=== PATIENT | female | born 1945 | race Hispanic/Latino ===

== ENCOUNTER 2017-05-06 06:52 | Day surgery (SDC) | payer OTHER, MEDICARE ==
[2017-05-05 08:49] VITALS: BP 84/34
[~2017-05-06] VITALS: Ht 160 cm; Wt 89.7 kg
[~2017-05-06 06:52] MED LIST: ALEN70TA47 PO; AMLO5TAB2 PO; ASPI-555 PO; CA C1TAB95 PO; ESOM40CA PO; INSLAN SQ; LEVO50TA11 PO; LEVO75TA10 PO; LISI40TA4 PO; METF500T6 PO; SIMV40TA59 PO
[2017-05-06] MEDS ORDERED: SODIUM CHLORIDE 0.9% 1000ML 1,000 ML IV ONE (06:56)
[2017-05-06 07:30] VITALS: BP 129/66
[2017-05-06] MEDS ORDERED: PROPOFOL 10 MG/ML 20ML VIAL IV ONE (07:57)
[2017-05-06] MEDS ORDERED: LIDOCAINE HCL 1% 20 ML VIAL ONE (08:17)
[2017-05-06] MEDS ORDERED: MIDAZOLAM HCL 1 MG/ML 2ML VIAL ONE (08:17)
[2017-05-06] MEDS ORDERED: FENTANYL CITRATE PF 50 MCG/1 ML 2ML VIAL ONE (08:17)
== END 2017-05-06 09:15 | disposition home or self-care (01) ==
LOC: SUH 06:52 → DAH 06:52 → SUH 09:15
PROVIDERS: ATTEND Internal Medicine Gastroenterology
DX: Z09 Encounter for follow-up examination after completed treatment for conditions other than malignant neoplasm (principal); K63.5 Polyp of colon; K57.30 Diverticulosis of large intestine without perforation or abscess without bleeding; I10 Essential (primary) hypertension; E03.9 Hypothyroidism, unspecified; E11.9 Type 2 diabetes mellitus without complications; M19.90 Unspecified osteoarthritis, unspecified site; F32.9 Major depressive disorder, single episode, unspecified; Z90.710 Acquired absence of both cervix and uterus; Z90.49 Acquired absence of other specified parts of digestive tract; Z98.890 Other specified postprocedural states; Z86.010 Personal history of colon polyps; Z91.041 Radiographic dye allergy status
CPT/HCPCS: 45380; 82948 ×2; 88305; 93005; A4606; J2250; J2704; J3010; J7030

== ENCOUNTER 2017-06-10 18:08 | Emergency (ER) | payer OTHER, MEDICARE ==
[2017-06-10] MEDS ORDERED: MORPHINE SULFATE 2 MG/ML 1ML SYG ONE (18:47)
[2017-06-10] MEDS ORDERED: ONDANSETRON HCL 4 MG/2 ML VIAL ONE (18:47)
[2017-06-10 19:13] LABS: CREATININE 1.5 mg/dL (0.5-1.5); POTASSIUM 3.8 mmol/L (3.5-5.1)
[2017-06-10 19:23] LABS: BASOPHILS % (AUTO) 0.6 % (0.0-5.0); EOSINOPHILS % (AUTO) 2.1 % (0.0-8.0); HEMATOCRIT 28.3 % (36-48); LYMPHOCYTES % (AUTO) 21.9 % (21.0-51.0); MEAN CORPUSCULAR HEMOGLOBIN 28.6 pg (27.0-33.0); MEAN CORPUSCULAR HGB CONC 33.5 g/dL (32.0-36.0); MEAN CORPUSCULAR VOLUME 85.4 fL (79-99); MONOCYTES % (AUTO) 7.1 % (3.0-13.0); NEUTROPHILS % (AUTO) 68.3 % (40.0-77.0); PLATELET COUNT (AUTO) 541 K/uL (130-400); RED BLOOD CELL COUNT(AUTO) 3.32 MIL/uL (4.00-5.50); RED CELL DISTRIBUTION WIDTH 13.8 % (11.0-15.5); WHITE BLOOD COUNT (AUTO) 10.1 K/uL (4.8-10.8)
== END 2017-06-10 20:24 | disposition home or self-care (01) ==
LOC: EDH 18:08
DX: M54.32 Sciatica, left side (principal); I10 Essential (primary) hypertension; E11.9 Type 2 diabetes mellitus without complications; E78.5 Hyperlipidemia, unspecified; Z91.041 Radiographic dye allergy status
CPT/HCPCS: 36415; 80048; 85025; 93926; 93971; 96374; 96375; 99285; J2405

== ENCOUNTER 2019-03-29 14:18 | Emergency (ER) | payer OTHER, MEDICARE ==
[~2019-03-29 14:18] MED LIST changes: +ALEN70TA10 PO; -ALEN70TA47 PO; -AMLO5TAB2 PO; +AMLO5TAB9 PO; +METF-444 PO; -METF500T6 PO
[2019-03-29] MEDS ORDERED: TETANUS/DIPHTHERIA TOXOID [ADULT] 0.5 ML VIAL IM ONE (14:42)
[2019-03-29] MEDS ORDERED: ACETAMINOPHEN EXTRA STRENGTH 500 MG TABLET ONE (14:49)
[2019-03-29] MEDS ORDERED: LIDOCAINE 1%-EPI 1:100,000 20 ML VIAL IJ ONE (14:49)
== END 2019-03-29 17:13 | disposition home or self-care (01) ==
LOC: EDH 14:18
DX: S01.81XA Laceration without foreign body of other part of head, initial encounter (principal); E11.9 Type 2 diabetes mellitus without complications; E78.5 Hyperlipidemia, unspecified; I10 Essential (primary) hypertension; Z91.041 Radiographic dye allergy status; W18.39XA Other fall on same level, initial encounter; Y93.89 Activity, other specified; Y92.89 Other specified places as the place of occurrence of the external cause; Y99.8 Other external cause status
CPT/HCPCS: 12053; 70450; 72125; 90471; 90714; 99284; J3490

== ENCOUNTER 2021-07-17 06:50 | Observation (INO) | payer OTHER, MEDICARE ==
[2021-07-15 11:46] LABS: APPEARANCE,URINE CLEAR (CLEAR); BILIRUBIN,URINE NEGATIVE (NEGATIVE); COLOR,URINE YELLOW (YELLOW); GLUCOSE, URINE (UA) NEGATIVE (NEGATIVE); KETONES,URINE NEGATIVE (NEGATIVE); LEUKOCYTE ESTERASE ,URINE LARGE (NEGATIVE); NITRATE,URINE NEGATIVE (NEGATIVE); OCCULT BLOOD,URINE TRACE-INTACT (NEGATIVE); PROTEIN,URINE 100 mg/dL (NEGATIVE); UROBILINOGEN,URINE 0.2 mg/dL (0.2-1.0)
[2021-07-15 11:47] LABS: BASOPHILS % (AUTO) 0.8 % (0.0-5.0); EOSINOPHILS % (AUTO) 3.2 % (0.0-8.0); HEMATOCRIT 34.7 % (36-48); LYMPHOCYTES % (AUTO) 37.5 % (21.0-51.0); MEAN CORPUSCULAR HEMOGLOBIN 28.6 pg (27.0-33.0); MEAN CORPUSCULAR HGB CONC 31.1 g/dL (32.0-36.0); MONOCYTES % (AUTO) 6.2 % (3.0-13.0); NEUTROPHILS % (AUTO) 51.9 % (40.0-77.0); PLATELET COUNT (AUTO) 309 K/uL (130-400); RED BLOOD CELL COUNT(AUTO) 3.77 MIL/uL (4.00-5.50); RED CELL DISTRIBUTION WIDTH 13.4 % (11.0-15.5); WHITE BLOOD COUNT (AUTO) 7.9 K/uL (4.8-10.8)
[2021-07-15 11:49] LABS: CREATININE 2.1 mg/dL (0.5-1.5); POTASSIUM 4.2 mmol/L (3.5-5.1)
[2021-07-15 11:53] LABS: INR 0.99 (0.85-1.15); PROTHROMBIN TIME 10.8 SEC (9.6-11.6)
[2021-07-15 11:58] LABS: BACTERIA,URINE Rare /HPF (None Seen)
[2021-07-15 11:59] LABS: MUCUS,URINE Few LPF (None Seen); SQUAMOUS EPITHELIAL CELL,UR Few /HPF (0-2)
[2021-07-16 15:15] VITALS: BP 153/66
[2021-07-17] VITALS (26 sets, daily range): BP systolic 103–159; BP diastolic 42–78
[~2021-07-17] VITALS: Ht 162.6 cm; Wt 70.8 kg
[~2021-07-17 06:50] MED LIST changes: -ALEN70TA10 PO; +AMLO-257 PO; -AMLO5TAB9 PO; -ASPI-555 PO; +ASPI-556 PO; -CA C1TAB95 PO; +CHOL-34 PO; +IRON18TA PO; -LISI40TA4 PO; +LISI40TA9 PO; +ROSU40TA21 PO; -SIMV40TA59 PO
[2021-07-17] MEDS ORDERED: CEFAZOLIN SODIUM 1 GM VIAL IVP ONE (08:00)
[2021-07-17] MEDS ORDERED: 0.9%NACL 1000ML 1,000 ML IV ONE (08:06)
[2021-07-17] MEDS ORDERED: ACETAMINOPHEN 500 MG TABLET ONE (08:26)
[2021-07-17] MEDS ORDERED: CELECOXIB 200 MG CAP ONE (08:27)
[2021-07-17] MEDS ORDERED: KETOROLAC 15MG/ML VIAL (15MG/ML) ONE (08:27)
[2021-07-17] MEDS ORDERED: CEFAZOLIN SODIUM 1 GM VIAL ONE (09:29)
[2021-07-17] MEDS ORDERED: TRANEXAMIC ACID 1000MG/10ML ONE ×2 (09:29→13:48)
[2021-07-17] MEDS ORDERED: SUCCINYLCHOLINE CHLORIDE 20 MG/ML 10 ML VIAL ONE (11:06)
[2021-07-17] MEDS ORDERED: LIDOCAINE PF 100MG/5ML (2%) SYRINGE 5ML ONE (11:06)
[2021-07-17] MEDS ORDERED: ONDANSETRON 4MG INJ ONE (11:06)
[2021-07-17] MEDS ORDERED: SUCCINYLCHOLINE 200MG/10ML SYR ONE (11:06)
[2021-07-17] MEDS ORDERED: NEOSTIGMINE 5MG/5ML SYR IV ONE (11:07)
[2021-07-17] MEDS ORDERED: GLYCOPYRROLATE 1 MG/5 ML SYRINGE ONE (11:07)
[2021-07-17] MEDS ORDERED: PROPOFOL 10 MG/ML 20ML VIAL IV ONE (11:07)
[2021-07-17] MEDS ORDERED: ROCURONIUM 10MG/1ML SYR 10 MG/ML ML ONE (11:07)
[2021-07-17] MEDS ORDERED: FENTANYL CITRATE PF 50 MCG/1 ML 2ML VIAL ONE ×2 (11:07→13:38)
[2021-07-17] MEDS ORDERED: CEFAZOLIN SODIUM 1 GM VIAL IRRIG ONE (11:45)
[2021-07-17] MEDS ORDERED: CALCIUM CARB 500MG PO PRN (13:00)
[2021-07-17] MEDS ORDERED: ONDANSETRON 4MG INJ IVP PRN (13:00)
[2021-07-17] MEDS: 0.9%NACL 1000ML 1,000 ML IV SCH ×2 (13:00→21:47)
[2021-07-17] MEDS ORDERED: TRAMADOL HCL 50 MG TABLET PO PRN (13:00)
[2021-07-17] MEDS ORDERED: DiphenhydrAMINE HCL 50 MG/ML VIAL IVP PRN (13:00)
[2021-07-17] MEDS ORDERED: FERROUS FUMARATE 324 MG TABLET PO PRN (13:00)
[2021-07-17] MEDS ORDERED: TEMAZEPAM 15 MG CAPSULE PO PRN (13:00)
[2021-07-17] MEDS ORDERED: LIDOCAINE HCL-MPF 1% 2ML VIAL IV PRN (13:00)
[2021-07-17] MEDS ORDERED: POTASSIUM CHLORIDE 10% ELIXIR 20 MEQ/15 ML UDCUP PO PRN (13:00)
[2021-07-17] MEDS: ACETAMINOPHEN 500 MG TABLET PO SCH ×2 (13:00→20:11)
[2021-07-17] MEDS ORDERED: POTASSIUM CHLORIDE 20MEQ/100ML 100 ML IV PRN (13:00)
[2021-07-17] MEDS ORDERED: OXYCODONE HCL 5 MG TAB PO PRN ×2 (13:00)
[2021-07-17] MEDS ORDERED: KCL 20 MEQ ERTAB PO PRN (13:00)
[2021-07-17] MEDS ORDERED: ROPIVACAINE 0.5% 5MG/ML 30ML IJ ONE (13:01)
[2021-07-17] MEDS ORDERED: MEPERIDINE-PF 25 MG/ML SYG ONE ×2 (13:52→14:03)
[2021-07-17] MEDS: INSULIN HUMULIN R 100 UNIT/ML 3ML SQ SCH ×2 (16:30→20:03)
[2021-07-17] MEDS: CEFAZOLIN SODIUM 1 GM VIAL IVP SCH (18:04)
[2021-07-17] MEDS: KETOROLAC 15MG/ML VIAL (15MG/ML) IV PRN (18:05)
[2021-07-17] MEDS: CELECOXIB 200 MG CAP PO SCH (20:11)
[2021-07-17] MEDS: ASPIRIN 81 MG EC TAB PO SCH (20:11)
[2021-07-17] MEDS: PREGABALIN 25 MG CAP PO SCH (20:11)
[2021-07-18] MEDS: CEFAZOLIN SODIUM 1 GM VIAL IVP SCH (02:11)
[2021-07-18 04:00] VITALS: BP 111/67
[2021-07-18] MEDS: ACETAMINOPHEN 500 MG TABLET PO SCH ×2 (04:40→11:44)
[2021-07-18 04:53] LABS: HEMATOCRIT 26.9 % (36-48); MEAN CORPUSCULAR HEMOGLOBIN 28.3 pg (27.0-33.0); MEAN CORPUSCULAR HGB CONC 31.2 g/dL (32.0-36.0); MEAN CORPUSCULAR VOLUME 90.6 fL (79-99); RED BLOOD CELL COUNT(AUTO) 2.97 MIL/uL (4.00-5.50); RED CELL DISTRIBUTION WIDTH 13.3 % (11.0-15.5); WHITE BLOOD COUNT (AUTO) 6.5 K/uL (4.8-10.8)
[2021-07-18 05:11] LABS: CREATININE 1.9 mg/dL (0.5-1.5); POTASSIUM 4.8 mmol/L (3.5-5.1)
[2021-07-18] MEDS: INSULIN HUMULIN R 100 UNIT/ML 3ML SQ SCH ×2 (06:03→11:44)
[2021-07-18] MEDS ORDERED: LEVOTHYROXINE 75 MCG TABLET PO SCH (06:30)
[2021-07-18] MEDS ORDERED: METFORMIN HCL 500 MG TABLET PO SCH (08:00)
[2021-07-18 08:20] VITALS: BP 111/60
[2021-07-18] MEDS ORDERED: POLYETHYLENE GLYCOL 3350 17 GM POWD.PACK PO SCH (09:00)
[2021-07-18] MEDS ORDERED: PANTOPRAZOLE 40 MG TAB DR PO SCH (09:00)
[2021-07-18] MEDS: 0.9%NACL 1000ML 1,000 ML IV SCH (09:00)
[2021-07-18] MEDS ORDERED: INSULIN GLARGINE 100 UNITS/ML 10 ML VIAL SQ SCH (09:00)
[2021-07-18] MEDS ORDERED: IRON 18 MG PO SCH (09:00)
[2021-07-18] MEDS ORDERED: LISINOPRIL 40 MG TABLET PO SCH (09:00)
[2021-07-18] MEDS ORDERED: **HM** VIT D3 25MCG PO SCH (09:00)
[2021-07-18] MEDS ORDERED: ATORVASTATIN 40 MG TABLET PO SCH (09:00)
[2021-07-18] MEDS: CELECOXIB 200 MG CAP PO SCH (09:47)
[2021-07-18] MEDS: ASPIRIN 81 MG EC TAB PO SCH (09:47)
[2021-07-18] MEDS: PREGABALIN 25 MG CAP PO SCH (09:48)
[2021-07-18 11:37] VITALS: BP 131/59
[2021-07-18] MEDS: KETOROLAC 15MG/ML VIAL (15MG/ML) IV PRN (15:25)
[2021-07-18] MEDS ORDERED: HYDR-4060 PO ×2 (15:34→15:37)
[2021-07-18] MEDS ORDERED: AEC81 PO (15:34)
[2021-07-18 15:49] VITALS: BP 131/65
[2021-07-18] MEDS ORDERED: AMLODIPINE 5 MG TAB PO SCH (21:00)
[2021-07-19] MEDS ORDERED: LEVOTHYROXINE 50 MCG TABLET PO SCH (06:30)
[2021-07-20] MEDS ORDERED: BISACODYL 10 MG SUPP.RECT RC PRN (13:00)
== END 2021-07-18 16:30 | disposition home health service (06) ==
LOC: DAH 06:50 → DAHIP 06:51 → 4AH 14:45
PROVIDERS: ADMIT Orthopaedic Surgery; ATTEND Orthopaedic Surgery
DX: M17.11 Unilateral primary osteoarthritis, right knee (principal); Z20.822 Contact with and (suspected) exposure to COVID-19; E11.9 Type 2 diabetes mellitus without complications; I10 Essential (primary) hypertension; E78.5 Hyperlipidemia, unspecified; E03.9 Hypothyroidism, unspecified; D62 Acute posthemorrhagic anemia; K21.9 Gastro-esophageal reflux disease without esophagitis; I25.10 Atherosclerotic heart disease of native coronary artery without angina pectoris; Z90.710 Acquired absence of both cervix and uterus; Z79.899 Other long term (current) drug therapy
CPT/HCPCS: 27447; 36415 ×2; 80048 ×2; 81001; 82948 ×6; 85025; 85027; 85610; 87088; 87635; 87641; 88305; 88311; 96372; 96374; 96375; 96376; 97039 ×2; 97116 ×2; 97161; 97530 ×2; A4215 ×2; A4221; A4222; A4223; A4600; A4649 ×5; A4663; A9272; C1776; C9803; G0378 ×24; J0330 ×2; J0690 ×5; J1885 ×3; J2001; J2175 ×2; J2405; J2704; J2710; J2795; J3010 ×2; J3490 ×3; J7030; J7120

== ENCOUNTER → 2021-10-24 | Outpatient (CLI) | payer OTHER, MEDICARE ==
[~2021-10-24] VITALS: Ht 129.5 cm; Wt 65.7 kg
[~2021-10-24] MED LIST changes: +AEC81 PO; +CEFAZOLIN SODIUM 1 GM VIAL IVP SCH; +HYDR-4060 PO; +LEVOFLOXACIN 500 MG/D5W 100 ML 100 ML IV SCH
[2021-10-24 10:56] LABS: BASOPHILS % (AUTO) 0.7 % (0.0-5.0); EOSINOPHILS % (AUTO) 3.1 % (0.0-8.0); HEMATOCRIT 32.2 % (36-48); LYMPHOCYTES % (AUTO) 37.4 % (21.0-51.0); MEAN CORPUSCULAR HEMOGLOBIN 28.9 pg (27.0-33.0); MEAN CORPUSCULAR HGB CONC 31.4 g/dL (32.0-36.0); MEAN CORPUSCULAR VOLUME 92.3 fL (79-99); MONOCYTES % (AUTO) 7.4 % (3.0-13.0); NEUTROPHILS % (AUTO) 51.1 % (40.0-77.0); PLATELET COUNT (AUTO) 284 K/uL (130-400); RED BLOOD CELL COUNT(AUTO) 3.49 MIL/uL (4.00-5.50); RED CELL DISTRIBUTION WIDTH 13.6 % (11.0-15.5); WHITE BLOOD COUNT (AUTO) 6.8 K/uL (4.8-10.8)
[2021-10-24 11:21] LABS: APPEARANCE,URINE Clear (CLEAR); BILIRUBIN,URINE Negative (NEGATIVE); COLOR,URINE Yellow (YELLOW); GLUCOSE, URINE (UA) Negative (NEGATIVE); KETONES,URINE Negative (NEGATIVE); LEUKOCYTE ESTERASE ,URINE Moderate (NEGATIVE); NITRATE,URINE Negative (NEGATIVE); OCCULT BLOOD,URINE Negative (NEGATIVE); PH,URINE 5.5 (5.0-8.0); PROTEIN,URINE POS 1+ mg/dL (NEGATIVE)
[2021-10-24 11:30] LABS: CREATININE 2.2 mg/dL (0.5-1.5); POTASSIUM 4.3 mmol/L (3.5-5.1)
[2021-10-24 11:34] LABS: BACTERIA,URINE Rare /HPF (None Seen); RBC,URINE 0-1 /HPF (0-1); SQUAMOUS EPITHELIAL CELL,UR Rare /HPF (0-2); WBC,URINE 26-50 /HPF (0-1)
[2021-10-24 11:36] LABS: INR 0.93 (0.85-1.15); PROTHROMBIN TIME 10.1 SEC (9.6-11.6)
[2021-10-24 17:55] VITALS: BP 144/64
== END | disposition home or self-care (01) ==
LOC: DAH 10:00 → EDSTATUS 10:00
PROVIDERS: ATTEND Orthopaedic Surgery
DX: Z01.818 Encounter for other preprocedural examination (principal); M75.101 Unspecified rotator cuff tear or rupture of right shoulder, not specified as traumatic; G89.29 Other chronic pain; Z79.01 Long term (current) use of anticoagulants; Z79.899 Other long term (current) drug therapy
CPT/HCPCS: 36415; 80048; 81001; 85025; 85610; 87088; 87426; 87641; J1956

== ENCOUNTER 2021-11-06 06:30 | Observation (INO) | payer OTHER, MEDICARE ==
[2021-11-05 12:12] VITALS: BP 194/71
[~2021-11-06] VITALS: Ht 162.6 cm; Wt 66.9 kg
[2021-11-06] VITALS (22 sets, daily range): BP systolic 98–146; BP diastolic 44–67
[~2021-11-06 06:30] MED LIST changes: -ASPI-556 PO; -CEFAZOLIN SODIUM 1 GM VIAL IVP SCH; +CEFAZOLIN SODIUM 2 GM VIAL IV ONE; -HYDR-4060 PO; -INSLAN SQ; -LEVOFLOXACIN 500 MG/D5W 100 ML 100 ML IV SCH; -LISI40TA9 PO; -METF-444 PO; +TRANEXAMIC ACID 1000MG/10ML IV ONE
[2021-11-06] MEDS ORDERED: 0.9%NACL 1000ML 1,000 ML IV ONE (06:50)
[2021-11-06] MEDS: LEVOFLOXACIN 500 MG/D5W 100 ML 100 ML IV SCH ×4 (07:55→21:09)
[2021-11-06] MEDS ORDERED: CEFAZOLIN SODIUM 1 GM VIAL IVP ONE (08:00)
[2021-11-06] MEDS ORDERED: ASPI-1443 PO (08:01)
[2021-11-06] MEDS ORDERED: CEFAZOLIN SODIUM 1 GM VIAL ONE (08:51)
[2021-11-06] MEDS ORDERED: LIDOCAINE PF 100MG/5ML (2%) SYRINGE 5ML ONE (09:24)
[2021-11-06] MEDS ORDERED: FENTANYL CITRATE PF 50 MCG/1 ML 2ML VIAL ONE ×2 (09:24→14:08)
[2021-11-06] MEDS ORDERED: ONDANSETRON 4MG INJ ONE (09:24)
[2021-11-06] MEDS ORDERED: ROCURONIUM 10MG/1ML SYR 10 MG/ML ML ONE ×2 (09:25→12:58)
[2021-11-06] MEDS ORDERED: PROPOFOL 10 MG/ML 20ML VIAL IV ONE (09:25)
[2021-11-06] MEDS ORDERED: MIDAZOLAM HCL 1 MG/ML 2ML VIAL ONE (09:25)
[2021-11-06] MEDS ORDERED: ROPIVACAINE 0.5% 5MG/ML 30ML IJ ONE (09:33)
[2021-11-06] MEDS ORDERED: CEFAZOLIN SODIUM 2 GM VIAL IV ONE (11:03)
[2021-11-06] MEDS ORDERED: TRANEXAMIC ACID 1000MG/10ML IV ONE (11:25)
[2021-11-06] MEDS ORDERED: TRANEXAMIC ACID 1000MG/10ML ONE ×2 (11:46→13:50)
[2021-11-06] MEDS ORDERED: EPHEDRINE SULFATE 50 MG/ML AMPULE ONE (12:03)
[2021-11-06] MEDS ORDERED: ATROPINE 1MG SYG IVP ONE (12:39)
[2021-11-06] MEDS ORDERED: GLYCOPYRROLATE 1 MG/5 ML SYRINGE ONE (13:57)
[2021-11-06] MEDS ORDERED: NEOSTIGMINE 5MG/5ML SYR IV ONE (13:57)
[2021-11-06] MEDS ORDERED: ONDANSETRON 4MG INJ IVP PRN (14:00)
[2021-11-06] MEDS ORDERED: KCL 20 MEQ ERTAB PO PRN (14:00)
[2021-11-06] MEDS ORDERED: POTASSIUM CHLORIDE 20MEQ/100ML 100 ML IV PRN (14:00)
[2021-11-06] MEDS: ACETAMINOPHEN 500 MG TABLET PO SCH ×2 (14:00→22:00)
[2021-11-06] MEDS ORDERED: OXYCODONE HCL 5 MG TAB PO PRN (14:00)
[2021-11-06] MEDS ORDERED: LIDOCAINE HCL-MPF 1% 2ML VIAL IV PRN (14:00)
[2021-11-06] MEDS: 0.9%NACL 1000ML 1,000 ML IV SCH (14:00)
[2021-11-06] MEDS ORDERED: CALCIUM CARB 500MG PO PRN (14:00)
[2021-11-06] MEDS ORDERED: POTASSIUM CHLORIDE 10% ELIXIR 20 MEQ/15 ML UDCUP PO PRN (14:00)
[2021-11-06] MEDS ORDERED: TRAMADOL HCL 50 MG TABLET PO PRN (14:00)
[2021-11-06] MEDS ORDERED: DiphenhydrAMINE HCL 50 MG/ML VIAL IVP PRN (14:00)
[2021-11-06] MEDS: INSULIN HUMULIN R 100 UNIT/ML 3ML SQ SCH ×2 (16:30→21:58)
[2021-11-06] MEDS ORDERED: ASPIRIN 81 MG EC TAB PO SCH (21:00)
[2021-11-06] MEDS: AMLODIPINE 5 MG TAB PO SCH (21:09)
[2021-11-06] MEDS: CEFAZOLIN SODIUM 1 GM VIAL IVP SCH (21:09)
[2021-11-06] MEDS: CELECOXIB 200 MG CAP PO SCH (21:09)
[2021-11-07] VITALS (7 sets, daily range): BP systolic 94–115; BP diastolic 44–64
[2021-11-07] MEDS ORDERED: DIPHENHYDRAMINE HCL 25 MG CAPSULE ONE (02:25)
[2021-11-07] MEDS ORDERED: DIPHENHYDRAMINE HCL 25 MG CAPSULE PO ONE (02:30)
[2021-11-07] MEDS ORDERED: CEFAZOLIN SODIUM 1 GM VIAL ONE (04:11)
[2021-11-07] MEDS: CEFAZOLIN SODIUM 1 GM VIAL IVP SCH (04:16)
[2021-11-07 04:36] LABS: HEMATOCRIT 24.5 % (36-48); MEAN CORPUSCULAR HEMOGLOBIN 28.7 pg (27.0-33.0); MEAN CORPUSCULAR VOLUME 92.5 fL (79-99); PLATELET COUNT (AUTO) 182 K/uL (130-400); RED BLOOD CELL COUNT(AUTO) 2.65 MIL/uL (4.00-5.50); RED CELL DISTRIBUTION WIDTH 14.1 % (11.0-15.5); WHITE BLOOD COUNT (AUTO) 7.8 K/uL (4.8-10.8)
[2021-11-07 04:48] LABS: CREATININE 1.7 mg/dL (0.5-1.5); POTASSIUM 4.3 mmol/L (3.5-5.1)
[2021-11-07] MEDS: INSULIN HUMULIN R 100 UNIT/ML 3ML SQ SCH ×4 (05:42→21:36)
[2021-11-07] MEDS: ACETAMINOPHEN 500 MG TABLET PO SCH ×3 (05:42→21:30)
[2021-11-07] MEDS ORDERED: LEVOTHYROXINE 75 MCG TABLET PO SCH (06:30)
[2021-11-07] MEDS: OXYCODONE HCL 5 MG TAB PO PRN (08:31)
[2021-11-07] MEDS: **HM**(Cholecalciferol (Vitamin D3) (Vitamin D3) 25 MCG PO SCH (09:00)
[2021-11-07] MEDS: IRON 18 MG PO SCH (09:00)
[2021-11-07] MEDS: 0.9%NACL 1000ML 1,000 ML IV SCH ×2 (10:00)
[2021-11-07] MEDS: PANTOPRAZOLE 40 MG TAB DR PO SCH (10:23)
[2021-11-07] MEDS: ATORVASTATIN 40 MG TABLET PO SCH (10:23)
[2021-11-07] MEDS: POLYETHYLENE GLYCOL 3350 17 GM POWD.PACK PO SCH (10:24)
[2021-11-07] MEDS: CELECOXIB 200 MG CAP PO SCH ×2 (10:24→21:30)
[2021-11-07] MEDS: ASPIRIN 81 MG EC TAB PO SCH (10:24)
[2021-11-07] MEDS: AMLODIPINE 5 MG TAB PO SCH (21:00)
[2021-11-07] MEDS: FE FUMARATE/FA/MV, MIN COMB#15 1 TAB PO PRN (21:30)
[2021-11-08 04:00] VITALS: BP 120/67
[2021-11-08] MEDS: LEVOFLOXACIN 500 MG/D5W 100 ML 100 ML IV SCH (05:00)
[2021-11-08] MEDS: INSULIN HUMULIN R 100 UNIT/ML 3ML SQ SCH ×2 (06:07→11:21)
[2021-11-08] MEDS: ACETAMINOPHEN 500 MG TABLET PO SCH (06:08)
[2021-11-08] MEDS ORDERED: LEVOTHYROXINE 50 MCG TABLET PO SCH (06:30)
[2021-11-08 07:39] VITALS: BP 112/50
[2021-11-08] MEDS: OXYCODONE HCL 5 MG TAB PO PRN (08:26)
[2021-11-08] MEDS: IRON 18 MG PO SCH (09:00)
[2021-11-08] MEDS: **HM**(Cholecalciferol (Vitamin D3) (Vitamin D3) 25 MCG PO SCH (09:00)
[2021-11-08] MEDS: PANTOPRAZOLE 40 MG TAB DR PO SCH (09:06)
[2021-11-08] MEDS: CELECOXIB 200 MG CAP PO SCH (09:06)
[2021-11-08] MEDS: ATORVASTATIN 40 MG TABLET PO SCH (09:06)
[2021-11-08] MEDS: ASPIRIN 81 MG EC TAB PO SCH (09:06)
[2021-11-08] MEDS: POLYETHYLENE GLYCOL 3350 17 GM POWD.PACK PO SCH (09:07)
[2021-11-08 11:00] VITALS: BP 95/47
[2021-11-08] MEDS: FE FUMARATE/FA/MV, MIN COMB#15 1 TAB PO PRN (11:31)
[2021-11-08] MEDS ORDERED: TRAM50TA4 PO (13:34)
[2021-11-08] MEDS ORDERED: HYDR-4060 PO (13:40)
[2021-11-09] MEDS ORDERED: BISACODYL 10 MG SUPP.RECT RC PRN (14:00)
== END 2021-11-08 15:45 | disposition home health service (06) ==
LOC: DAH 06:30 → DAHIP 06:31 → 4AH 14:46
PROVIDERS: ADMIT Orthopaedic Surgery; ATTEND Orthopaedic Surgery
DX: M75.101 Unspecified rotator cuff tear or rupture of right shoulder, not specified as traumatic (principal); Z20.822 Contact with and (suspected) exposure to COVID-19; M12.811 Other specific arthropathies, not elsewhere classified, right shoulder; M25.619 Stiffness of unspecified shoulder, not elsewhere classified; M25.511 Pain in right shoulder; R29.898 Other symptoms and signs involving the musculoskeletal system; I25.10 Atherosclerotic heart disease of native coronary artery without angina pectoris; I12.9 Hypertensive chronic kidney disease with stage 1 through stage 4 chronic kidney disease, or unspecified chronic kidney disease; N18.30 Chronic kidney disease, stage 3 unspecified; E11.22 Type 2 diabetes mellitus with diabetic chronic kidney disease; D62 Acute posthemorrhagic anemia; E03.9 Hypothyroidism, unspecified; M12.9 Arthropathy, unspecified; Z90.710 Acquired absence of both cervix and uterus; Z96.611 Presence of right artificial shoulder joint; Z96.653 Presence of artificial knee joint, bilateral; Z79.82 Long term (current) use of aspirin; Z79.4 Long term (current) use of insulin; Z79.899 Other long term (current) drug therapy; Z98.890 Other specified postprocedural states
CPT/HCPCS: 87426; 23472; 96372 ×3; 96365; 96375; 76942; 64415; 86850; 86900; 86901; 82948 ×8; 36415 ×2; 73030; 96376; 80048; 85027; 97161; 97039 ×3; 97116 ×4; 97530 ×4; G0378 ×46; A4663; J7030 ×3; C1776; J0690 ×5; J3010 ×2; J3490 ×5; J2710; J1956; J2001; J0461; J2250; J2704; J2405; J2795; J1815 ×4; A6206; G0168; A4649 ×4; A4930 ×2; A5120; A4215; A4223; A4222; A4221; A4600; Q0163

== ENCOUNTER 2024-03-12 23:10 | Emergency (ER) | payer MEDICARE ==
[~2024-03-12] VITALS: Ht 154.9 cm; Wt 68.3 kg
[~2024-03-12 23:10] MED LIST changes: -AEC81 PO; +ASPI-1443 PO; -CEFAZOLIN SODIUM 2 GM VIAL IV ONE; +HYDR-4060 PO; -ROSU40TA21 PO; +ROSU40TA88 PO; -TRANEXAMIC ACID 1000MG/10ML IV ONE
[2024-03-13 00:17] VITALS: BP 127/61; PULSE 74; RESP 20; TEMP 98.1; O2SAT 98
[2024-03-13] MEDS: HYDROcodone/acetaMINOPHEN 10/325 MG TAB PO ONE (00:27)
[2024-03-13] MEDS ORDERED: ACET-2079 PO (01:13)
[2024-03-13] MEDS ORDERED: PRED20TA3 PO (01:13)
[2024-03-13] MEDS ORDERED: SULF1TAB42 PO (01:13)
[2024-03-13] MEDS: morPHINE 2 MG SYG IM ONE (01:14)
[2024-03-13] MEDS ORDERED: GABA-534 PO (01:16)
--- NOTE | 2024-03-13 01:17 | ERN ---
General Chief Complaint: Finger Injury Stated Complaint: RIGHT INDEX FINGER PAIN Time Seen by MD: 23:28 Time Seen by Midlevel: 23:28 Source: patient History of Present Illness Initial Comments Patient is a 79-year-old female presenting to the ER with pain, swelling, and redness to the right 2nd finger. Patient states that approximately three weeks ago she hit herself in the area. She did not think much of it but recently she developed some pain with an increase in swelling so she decided to report to the ER for further evaluation. Denies any fever, chills, or any other symptoms at this time. Allergies: Coded Allergies: Iodine (Unverified Allergy, 08/09/12) Home Meds Active Scripts Prednisone (Prednisone) 20 Mg Tablet, 1 TAB PO BID for 5 Days, #10 TAB 0 Refills Prov:CODY ESPINOZA 03/13/24 Gabapentin (Gabapentin) 400 Mg Capsule, 1 CAP PO BID for 5 Days, #10 CAP 0 Refills Prov:CODY ESPINOZA 03/13/24 Sulfamethoxazole/Trimethoprim (Bactrim Ds Tablet) 800 Mg-160 Mg Tablet, 1 TAB PO BID for 7 Days, #14 TAB 0 Refills Prov:CODY ESPINOZA 03/13/24 Hydrocodone/Acetaminophen (Hydrocodon-Acetaminophen 5-325) 1 Each Tablet, 1-2 EACH PO Q6HPRN PRN for ACUTE POST-OP PAIN (G89.18), #56 TAB 0 Refills Prov:BETH CROUCH MD 11/08/21 Reported Medications Aspirin (Aspirin EC) 81 Mg Tablet.dr, 81 MG PO DAILY, TAB 11/06/21 Iron (Iron) 18 Mg Tablet, 18 MG PO DAILY, TAB 07/16/21 Cholecalciferol (Vitamin D3) (Vitamin D3) 25 Mcg Tablet, 25 MCG PO DAILY, TAB 07/16/21 Rosuvastatin Calcium (Rosuvastatin Calcium) 40 Mg Tablet, 40 MG PO DAILY, TAB 07/16/21 Amlodipine Besylate (Amlodipine Besylate) 5 Mg Tablet, 5 MG PO HS, TAB 05/05/17 Levothyroxine Sodium (Levothyroxine Sodium) 75 Mcg Tablet, 75 MCG PO MWFS, TAB 05/05/17 Levothyroxine Sodium (Levothyroxine Sodium) 50 Mcg Tablet, 50 MCG PO TTS, TAB 05/05/17 Esomeprazole Magnesium (Nexium) 40 Mg Capsule.dr, 40 MG PO DAILY, CAP 11/25/14 Past Medical History Past Medical History: Diabetes-Type II, High Cholesterol, Hypertension, Hypothyroid Past Surgical History: Hysterectomy, Cholecystectomy, Other Surgical History Other: THYROIDECTOMY, BILAT KNEE, BACK, SHOULDER ROS Dictation CONSTITUTIONAL: Negative except for HPI HEAD/FACE: Negative except for HPI EENT: Negative except for HPI RESPIRATORY: Negative except for HPI GASTROINTESTINAL/ABDOMINAL: Negative except for HPI GENITOURINARY: Negative except for HPI MUSCULOSKELETAL: Negative except for HPI INTEGUMENTARY: Negative except for HPI NEUROLOGICAL/PSYCH: Negative except for HPI HEMATOLOGIC/LYMPHATIC: Negative except for HPI All Systems Negative, Except as noted above. 13 point review of systems assessed and all negative except for above. Physical Exam Physical Exam Dictation PHYSICAL EXAM: GENERAL: alert,, awake oriented x 3 HEENT: EOMI, Sclera non icteric, moist mucosa NECK: Supple, no JVD, trachea midline LUNGS: Clear breath sounds bilaterally. No wheezes HEART: Regular rate and rhythm. Normal S1 and S2, without murmurs ABD: Abdomen soft, nontender. Bowel sounds present EXT: There is tenderness over the base of the right 2nd digit, range of motion is restricted secondary to pain, there is erythema overlying the joint NEURO: Alert and oriented to person, follows commands MDM MDM: Patient is a 79-year-old female presenting to the ER with pain, swelling, and redness to the right 2nd finger. Patient states that approximately three weeks ago she hit herself in the area. She did not think much of it but recently she developed some pain with an increase in swelling so she decided to report to the ER for further evaluation. Denies any fever, chills, or any other symptoms at this time. On physical examination there is tenderness over the base of the right 2nd digit, range of motion is restricted secondary to pain, there is erythema overlying the joint. An x-ray was obtained to rule out an acute fracture however x-ray does not show any acute injury. Physical examination is concerning for gout. Patient does report having a history of chronic kidney disease with last reported GFR in the 30s. We will avoid NSAIDs and colchicine at this time given her renal impairment. When reviewing her previous labs back in 2021 her GFR was in the 30s with an elevated creatinine. I will go ahead and discharge her with a prescription for gabapentin and steroids for supportive management. She was advised to follow up with her primary care doctor tomorrow for repeat evaluation. I have also provided a prescription for Bactrim to treat empirically. Differential diagnosis: Gout, septic joint, fracture There are no social concerns with this patient. Prescription drug management Prescriptions will include: Bactrim, gabapentin Medical management and examination interpretation discussions were had by me with other qualified healthcare professionals as indicated for the patient's care. ED Course Orders Procedure Category Date Status Time Hand 3+Vws Rt RAD 03/12/24 Taken 23:44 Hydrocodone/Apap PHA 03/13/24 Complete 10/325 Tab ([place] 10) 00:30 Morphine 2mg Syg PHA 03/13/24 Complete (Morphine 2mg Syg) 01:30 Current Medications Medications (Trade) Dose Ordered Sig/Iona Route PRN Reason Start Time Stop Time Status Last Admin Dose Admin Acetaminophen/ Hydrocodone Bitart ([place] 10) 1 tab ONCE ONCE PO 03/13/24 00:30 03/13/24 00:31 DC 03/13/24 00:27 Morphine Sulfate (morPHINE 2MG SYG) 2 mg ONCE ONCE IM 03/13/24 01:30 03/13/24 01:27 DC 03/13/24 01:14 Vital Signs Date Time Temp Pulse Resp B/P (MAP) Pulse Ox O2 Delivery O2 Flow Rate FiO2 03/13/24 00:17 98.1 74 20 127/61 98 Room Air* 0 03/12/24 23:17 98.8 78 18 131/65 98 Room Air* 0 21 03/12/24 23:11 98.2 82 16 179/84 97 Room Air 0 DX & DISP Disposition: Discharge Departure Impression: Primary Impression: Gout of right hand Condition: Stable Scripts Prednisone (Prednisone) 20 Mg Tablet 1 TAB PO BID for 5 Days, #10 TAB 0 Refills Prov: CODY ESPINOZA 03/13/24 Gabapentin (Gabapentin) 400 Mg Capsule 1 CAP PO BID for 5 Days, #10 CAP 0 Refills Prov: CODY ESPINOZA 03/13/24 Sulfamethoxazole/Trimethoprim (Bactrim Ds Tablet) 800 Mg-160 Mg Tablet 1 TAB PO BID for 7 Days, #14 TAB 0 Refills Prov: CODY ESPINOZA 03/13/24 Additional Instructions: Your right hand x-ray does not show any evidence of a fracture. Your physical examination is concerning for gout. I have given you a prescription for pain control and steroids which should help the pain. I have also given you a prescription for antibiotics. Follow up with your primary care doctor in the next 2-3 days for repeat evaluation. Return to the ER for any new or worsening symptoms Referrals: CODY BURKS MD (PCP) Time of Disposition: 01:17 I have reviewed the case, and I agree with, Diagnosis and Plan I performed the substantive portion of the visit. I have reviewed and personally made and approve the management plan that is documented in the note by myself or the LADI. I acknowledge for responsibility for the patient's management plan. CODY ESPINOZA Mar 13, 2024 01:17
--- NOTE | 2024-03-13 09:30 | HMCIMG ---
HAND 3+VWS RT REASON: swelling and pain to base of 2nd digit TECHNIQUE: 3 views were obtained. FINDINGS: There is mild osteoarthritis in the proximal and distal interphalangeal joints. Carpometacarpal joints appear preserved. There are no fractures. Soft tissues appear unremarkable. 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
== END 2024-03-13 01:27 | disposition home or self-care (01) ==
LOC: EDH 23:10
DX: M10.9 Gout, unspecified (principal); E11.9 Type 2 diabetes mellitus without complications; E03.9 Hypothyroidism, unspecified; E78.00 Pure hypercholesterolemia, unspecified; I10 Essential (primary) hypertension; Z79.52 Long term (current) use of systemic steroids; Z79.82 Long term (current) use of aspirin; Z79.899 Other long term (current) drug therapy; Z88.8 Allergy status to other drugs, medicaments and biological substances; Z90.49 Acquired absence of other specified parts of digestive tract; Z90.710 Acquired absence of both cervix and uterus; Z91.041 Radiographic dye allergy status
CPT/HCPCS: 99283; 73130; 96372; J2270